=== PATIENT | female | born 1945 | race Caucasian/White ===

== ENCOUNTER 2018-03-26 06:00 | Day surgery (SDC) | payer MEDICARE, BC ==
[~2018-03-26 06:00] MED LIST: ACETAZOLAMIDE 250 MG PO ONE
[2018-03-26] MEDS: CYCLOPENTOLATE 1% SOL ONE ×2 (06:23→06:36)
[2018-03-26] MEDS: PROPARACAINE HCL 0.5% OPHTHALMIC SOL ONE ×3 (06:23→07:30)
[2018-03-26] MEDS: PHENYLEPHRINE HCL 10% OPHTHAL SOL ONE ×2 (06:24→06:37)
[2018-03-26] MEDS: KETOROLAC 0.5% OPTH 60 DROP SOL ONE ×2 (06:24→06:37)
[2018-03-26] MEDS ORDERED: BSS 500 ML 500 ML IR ONE (06:54)
[2018-03-26] MEDS ORDERED: LIDOCAINE HCL 1% MPF 30 SOL ONE (06:54)
[2018-03-26] MEDS ORDERED: POVIDONE IODINE 5% SOL ONE (06:54)
[2018-03-26] MEDS ORDERED: MIDAZOLAM 2 MG/2 ML SOL ONE (07:10)
[2018-03-26 08:03] VITALS: O2SAT 98
== END 2018-03-26 08:29 | disposition home or self-care (01) | DRG 125 ==
LOC: SURG 06:00
PROVIDERS: ATTEND Ophthalmology
DX: H25.9 Unspecified age-related cataract (principal); H40.10X2 Unspecified open-angle glaucoma, moderate stage
CPT/HCPCS: 0191T; 66984; J2250; A9270-GY; J2001

== ENCOUNTER 2018-04-20 07:29 | Day surgery (SDC) | payer MEDICARE, BC ==
[2018-04-20] MEDS ORDERED: ACETAZOLAMIDE 250 MG PO ONE (07:44)
[2018-04-20] MEDS: PHENYLEPHRINE HCL 10% OPHTHAL SOL ONE ×2 (07:53→08:04)
[2018-04-20] MEDS: PROPARACAINE HCL 0.5% OPHTHALMIC SOL ONE ×3 (07:53→08:53)
[2018-04-20] MEDS: KETOROLAC 0.5% OPTH 60 DROP SOL ONE ×2 (07:54→08:05)
[2018-04-20] MEDS: CYCLOPENTOLATE 1% SOL ONE ×2 (07:54→08:05)
[2018-04-20] MEDS ORDERED: FENTANYL 100MCG/2ML SOL ONE (08:30)
[2018-04-20] MEDS ORDERED: MIDAZOLAM 2 MG/2 ML SOL ONE (08:31)
[2018-04-20] MEDS ORDERED: BSS 500 ML 500 ML IR ONE (08:47)
[2018-04-20] MEDS ORDERED: LIDOCAINE HCL 1% MPF 30 SOL ONE (08:47)
[2018-04-20] MEDS ORDERED: POVIDONE IODINE 5% SOL ONE (08:47)
[2018-04-20 10:48] VITALS: O2SAT 97
== END 2018-04-20 10:48 | disposition home or self-care (01) | DRG 125 ==
LOC: SURG 07:29
PROVIDERS: ATTEND Ophthalmology
DX: H25.9 Unspecified age-related cataract (principal)
CPT/HCPCS: J2250; J3010; A9270-GY; J2001

== ENCOUNTER 2019-01-01 09:45 | Emergency (ER) | payer BC, MEDICARE ==
[2019-01-01] MEDS ORDERED: KETOROLAC TROMETHAMINE 30 MG/ML SOL IV ONE (10:05)
[2019-01-01] MEDS ORDERED: FENTANYL 100MCG/2ML SOL IV ONE (10:05)
[2019-01-01] MEDS ORDERED: KETOROLAC TROMETHAMINE 30 MG/ML SOL ONE (10:11)
[2019-01-01] MEDS ORDERED: FENTANYL 100MCG/2ML SOL ONE (10:11)
[2019-01-01] MEDS ORDERED: SODIUM CHLORIDE 0.9% 1000ML 500 ML IV ONE (10:48)
[2019-01-01 11:58] VITALS: RESP 16; TEMP 98.1
[2019-01-01] MEDS ORDERED: DIAZEPAM 5MG/ML SOL IV ONE (12:05)
[2019-01-01] MEDS ORDERED: SODIUM CHLORIDE 0.9% FLUSH 10 ML SOL IV PRN (12:06)
[2019-01-01] MEDS ORDERED: CYCLOBENZAPRINE 10 MG TAB PO ONE (12:37)
[2019-01-01] MEDS ORDERED: CYCLOBENZAPRINE 10 MG TAB ONE (12:38)
[2019-01-01 22:21] VITALS: BP 108/62; PULSE 80; O2SAT 93
== END 2019-01-01 14:00 | disposition home or self-care (01) | DRG 563 ==
LOC: ED 09:45
DX: S42.201A Unspecified fracture of upper end of right humerus, initial encounter for closed fracture (principal); W01.0XXA Fall on same level from slipping, tripping and stumbling without subsequent striking against object, initial encounter; R40.2362 Coma scale, best motor response, obeys commands, at arrival to emergency department; R40.2142 Coma scale, eyes open, spontaneous, at arrival to emergency department; R40.2252 Coma scale, best verbal response, oriented, at arrival to emergency department
CPT/HCPCS: 73060; 96365; 96374; 96375; 99283; 99285; J1885; J3010; A9270-GY

== ENCOUNTER 2019-01-22 07:44 | Emergency (ER) | payer BC ==
[2019-01-22 07:50] VITALS: RESP 18; TEMP 97.5
[2019-01-22] MEDS ORDERED: SODIUM CHLORIDE 0.9% 1000ML 1,000 ML IV ONE (08:34)
[2019-01-22 08:52] LABS: BASOPHILS % (AUTO) 0 % (0-3); EOSINOPHILS % (AUTO) 1 % (0-9); HEMATOCRIT 39 % (35-47); HEMOGLOBIN 12.3 gm/dl (12.0-15.5); LYMPHOCYTES % (AUTO) 13.7 % (10-50); MEAN CORPUSCULAR HEMOGLOBIN 28.6 pg (27.0-32.0); MEAN CORPUSCULAR HGB CONC 31.4 gm/dl (32.0-36.0); MEAN CORPUSCULAR VOLUME 91 fL (81-99); MONOCYTES % (AUTO) 6.4 % (0-12); NEUTROPHILS % (AUTO) 78.4 % (37-80)
[2019-01-22] MEDS ORDERED: SODIUM CHLORIDE 0.9% FLUSH 10 ML SOL IV PRN (09:00)
[2019-01-22 09:23] LABS: APPEARANCE,URINE Slightly Cloudy; BILIRUBIN,URINE NEGATIVE (NEGATIVE); COLOR,URINE Light yellow; GLUCOSE, URINE (UA) NEGATIVE (NEGATIVE); KETONES,URINE NEGATIVE (NEGATIVE); LEUKOCYTE ESTERASE ,URINE 3+ (NEGATIVE); NITRATE,URINE POSITIVE (NEGATIVE); OCCULT BLOOD,URINE NEGATIVE (NEG-TRACE); PH,URINE 7.5; UROBILINOGEN,URINE 0.2 (0.2-1.0 EU)
[2019-01-22 09:25] LABS: BILIRUBIN,TOTAL 0.5 mg/dl (0.2-1.0); CALCIUM 9.2 mg/dl (8.5-10.1); CARBON DIOXIDE 28.5 mEq/L (21-32); CREATININE 0.71 mg/dl (0.60-1.00); TOTAL PROTEIN 7.8 gm/dl (6.4-8.2)
[2019-01-22 09:43] LABS: BACTERIA 3+ (< 1+); CRYSTALS NEGATIVE (0-3 AVE/HPF); EPITHELIAL CELLS 0-3 (SQUAMOUS); RBC,URINE NEG (0-3AV/HPF); WBC,URINE 15-20 (0-5AV/HPF)
[2019-01-22] MEDS ORDERED: CEFTRIAXONE 1 GM PDS 1 GM in SODIUM CHLORIDE 0.9% 50 ML 50 ML IV ONE (10:07)
[2019-01-22] MEDS ORDERED: CEFTRIAXONE 1 GM PDS ONE (10:11)
[2019-01-22 10:22] VITALS: O2SAT 98
[2019-01-22 10:32] VITALS: BP 136/64; PULSE 78
== END 2019-01-22 11:35 | disposition home or self-care (01) | DRG 690 ==
LOC: ED 07:44
DX: N39.0 Urinary tract infection, site not specified (principal)
CPT/HCPCS: 80053; 81001; 85025; 87077; 87088; 87186; 96365; 99283; 99284; J0696

== ENCOUNTER 2019-01-27 09:18 | Outpatient (CLI) | payer BC | END 2019-01-27 09:19 | disposition home or self-care (01) | DRG 561 | LOC: CONVCARE 09:18 | PROVIDERS: ATTEND Orthopaedic Surgery | DX: S42.201D Unspecified fracture of upper end of right humerus, subsequent encounter for fracture with routine healing (principal); S42.221D 2-part displaced fracture of surgical neck of right humerus, subsequent encounter for fracture with routine healing; G20 Parkinson's disease | CPT/HCPCS: 73030 ==

== ENCOUNTER 2019-02-24 09:21 | Outpatient (CLI) | payer BC | END 2019-02-24 09:22 | disposition home or self-care (01) | DRG 561 | LOC: CONVCARE 09:21 | PROVIDERS: ATTEND Orthopaedic Surgery | DX: S42.201D Unspecified fracture of upper end of right humerus, subsequent encounter for fracture with routine healing (principal) | CPT/HCPCS: 73030 ==